=== PATIENT | female | born 1985 | race Asian ===

== ENCOUNTER 2019-05-06 17:41 | Inpatient (IN) ==
[2019-05-06] MEDS ORDERED: OXYTOCIN 30 UNITS/500 ML BAG IV PRN (17:47)
[2019-05-06] MEDS ORDERED: LACTATED RINGER'S 1,000 ML IV PRN (18:00)
--- NOTE | 2019-05-06 18:07 | History & Physical Report ---
Date of Service May 06, 2019 Assessment & Plan (1) : Admit to L&D, EFM/toco. Labs, IV fluids. Patient desires epidural. Anticipate . History of Present Illness Chief Complaint: labor Primary Care Provider: [facility] PCP 34yo @ 40 3/7 presents with worsening contractions. Now every few minutes. No gush of fluid or vaginal bleeding. + movement. uncomplicated. Allergies Allergy/AdvReac Type Severity Reaction Status Date / Time No Known Drug Allergies Allergy Verified 05/03/19 16:05 Home Medications Home Medications Medication Instructions Recorded Confirmed Type 1 tab PO DAILY 03/29/19 05/03/19 History vitamin,calcium,ljxjowkh-gfyj-yvonc acid tablet calcium phosphate-vitamin D2 PO 04/05/19 05/03/19 History ferrous sulfate PO 04/05/19 05/03/19 History Patient History Family History Grandmother (Maternal) Colorectal cancer Grandfather (Maternal) Lung cancer Social History Preferred Language: Kiswahili Visual Impairment: No Limitations Hearing Ability: Normal Smoking Status: Never smoker Review of Systems All systems reviewed & are unremarkable except as noted in HPI & below Physical Exam Physical Exam: Cervix 6/100/-1 per RN. Membranes intact. Constitutional: WD/WN, vitals as above Respiratory: normal respiratory effort, lungs clear to auscultation no respiratory distress Cardiovascular: Rate/Rhythm: regular rate and regular rhythm Gastrointestinal (Abdomen): Inspection/Auscultation: abdomen normal to inspection Percussion/Palpation: abdomen soft; abdomen nontender Gravid. No s/s chorio or abruption. Skin: no rashes, warm and dry Psychiatric: A+Ox3, euthymic affect Results & Data Vital Signs (Past 12 Hours) Vital Signs Pulse BP 05/06/19 18:01 88 124/72 Monitoring External Monitor FHT Cat 1 Tocodynamometer Q 2-3 min
[2019-05-06 18:09] LABS: Hematocrit (blood only) 39.1 % (37-47); Hemoglobin 13.8 g/dL (12.0-16.0); Mean Corpuscular Hemoglobin 33.3 pg (25-34); Mean Corpuscular Volume 94.2 fL (80-100); Mean Platelet Volume 10.2 fL (7.4-10.4); Platelet Count 183 K/uL (130-400); RDW Coefficient of Variation 13.4 % (11.5-14.5); RDW Standard Deviation 46.3 fL (36.4-46.3); Red Blood Count 4.15 M/uL (4.2-5.4); White Blood Count 11.98 K/uL (4.8-10.8)
[2019-05-06 18:15] LABS: Mean Corpuscular Hgb Conc 35.3 g/dL (32-36)
[2019-05-06] MEDS ORDERED: fentaNYL citrate 100 MCG/2 ML VIAL ONE (18:48)
[2019-05-06] MEDS ORDERED: ePHEDrine sulfate 50 MG/ML AMP ONE (18:49)
[2019-05-06] MEDS ORDERED: BUPIVACAINE 0.25% 30 ML VIAL ONE (18:49)
[2019-05-06] MEDS ORDERED: fentaNYL 2MCG/ML ROPIV 1.25MG/ML 100 ML BAG EPI ONE (18:49)
--- NOTE | 2019-05-06 19:18 | Anesthesiology Consultation ---
Date of Service May 06, 2019 Assessment & Plan Chart Review Chart Review: Acceptable Risk for Labor Epidural Consults Requested none History Height/Weight Height: 5 ft 3 in Weight: 73.482 kg Allergies Allergy/AdvReac Type Severity Reaction Status Date / Time No Known Drug Allergies Allergy Unknown Verified 05/06/19 18:32 Medications Home Medications Medication Instructions Recorded Confirmed Last Taken 1 tab PO DAILY 03/29/19 05/06/19 Unknown vitamin,calcium,jrqdcgwr-ztyb-weahe acid tablet Active Medications Generic Name Dose Route Start Last Admin Trade Name Freq PRN Reason Stop Dose Admin Lactated Ringer's 1,000 mls @ 125 mls/hr 05/06/19 18:00 05/06/19 18:55 Lr IV 05/08/19 17:59 125 mls/hr .Q8H PRN Infusion L&D Protocol Protocol Past Medical History Medical History History of varicella Past Family History Family History Grandmother (Maternal) Colorectal cancer Grandfather (Maternal) Lung cancer Past Surgical History Surgical History S/P anterior cruciate ligament surgery S/P appendectomy S/P wisdom tooth extraction Social History Smoking Status: Never smoker Hx Alcohol Use: No Hx Substance Use: No substance use type: does not use Physical Exam Vital Signs Last Vital Signs Temp 36.8 C 05/06/19 17:52 Pulse 93 H 05/06/19 19:17 Resp 24 05/06/19 17:52 BP 114/72 05/06/19 19:17 Pulse Ox 99 05/06/19 19:12 Testing Laboratory Results 05/06/19 17:59
[2019-05-06] MEDS ORDERED: NALBUPHINE HCL INJ 10 MG/ML AMP IV PRN (19:20)
[2019-05-06] MEDS ORDERED: NALOXONE HCL 0.4 MG/1 ML VIAL/CARP IV PRN (19:20)
[2019-05-06] MEDS ORDERED: ePHEDrine sulfate 50 MG/ML AMP IV PRN (19:20)
[2019-05-06] MEDS ORDERED: NALOXONE HCL 1 MG in SODIUM CHLORIDE 0.9% 1000ML 1,000 ML IV PRN (19:20)
[2019-05-06] MEDS ORDERED: fentaNYL 2MCG/ML ROPIV 1.25MG/ML 100 ML BAG EPI PRN (19:20)
[2019-05-06] MEDS ORDERED: DiphenhydrAMINE HCL 50 MG/ML VIAL IV PRN (19:20)
--- NOTE | 2019-05-06 19:38 | Labor Progress Brief Note ---
Date of Service May 06, 2019 Subjective Reason For Note: Routine Evaluation Comfortable after epidural. FHT with decels just after epidural placement, rec'd ephedrine and this improved. SVE 7/100/0. AROM performed for scant fluid. Appears to be blood-tinged mucus. [place] Q 2-4 min. Continue labor, anticipate . Results & Data Vital Signs (Past 12 Hours) Vital Signs Temp Pulse Resp BP Pulse Ox 05/06/19 19:33 96 H 126/72 05/06/19 19:32 86 100 05/06/19 19:31 85 130/67 05/06/19 19:29 78 125/58 L 05/06/19 19:28 76 143/73 H 05/06/19 19:27 77 100 05/06/19 19:25 80 104/63 05/06/19 19:23 83 97/59 L 05/06/19 19:22 93 H 100 05/06/19 19:21 89 99/59 L 05/06/19 19:20 81 109/63 05/06/19 19:18 90 109/72 05/06/19 19:17 97 H 114/72 99 05/06/19 19:15 111/71 05/06/19 19:13 95 H 106/65 05/06/19 19:12 95 H 99 05/06/19 19:11 93 H 112/69 05/06/19 19:09 100 H 126/71 05/06/19 19:07 94 H 122/86 98 05/06/19 18:01 88 124/72 05/06/19 17:52 36.8 C 24
--- NOTE | 2019-05-07 00:10 | Delivery Summary ---
Vaginal Delivery Summary Date of Service May 07, 2019 Vaginal Delivery Summary Vaginal Delivery Summary: Pre-delivery diagnoses: 34yo @ 40 3/7, spontaneous labor Post-delivery diagnoses: same, 2nd degree perineal laceration, left vaginal sulcal tear Procedure: spontaneous vaginal delivery, repair of 2nd degree perineal laceration, repair of left vaginal sulcal tear Surgeon: Melyssa Alvarez DO Complications: none Findings: Viable female . Apgars: 8/9 . Weight pending, please see nursery records. Estimated blood loss: 400ml Description of delivery: The patient progressed to complete with epidural anesthesia. She then began to push. She spontaneously vaginally delivered a viable from the cephalic presentation. The head delivered in DANIEL position. The anterior shoulder delivered, followed by the posterior shoulder, followed by the body. Nuchal cord around neck, easily reduced. The cord was additionally wrapped around the baby's leg. Terminal meconium upon delivery of baby. Amniotic fluid until that time was clear. The baby was placed on mother's abdomen and a spontaneous cry was heard. The cord was doubly clamped and cut. A segment was retained for cord gases. Cord blood was obtained. The placenta was delivered spontaneously intact with a 3-vessel cord. The uterus and vagina were swept of clots and debris. IV pitocin was given. The uterus became firm. The cervix, vagina, and perineum were inspected. A 2nd degree perineal laceration and a left vaginal sulcal tear were noted. After infiltration with 1% lidocaine for anesthetic, these were repaired with running locked stitches of 3-0 Vicryl. Rectal exam revealed no lacerations or sutures in rectum. Excellent hemostasis was observed. The mother and baby are recovering in stable and good condition in the room. Sponge and instrument counts were correct x 2. Melyssa Alvarez DO [facility] [place]
[2019-05-07] MEDS ORDERED: SUPERCREAM 0.870% 15 GM JAR EXT PRN (00:29)
[2019-05-07] MEDS ORDERED: BISACODYL 10 MG SUPP PR PRN (00:29)
[2019-05-07] MEDS ORDERED: HYDROCORTISONE ACETATE 25 MG SUPP PR PRN (00:29)
[2019-05-07] MEDS ORDERED: ACETAMINOPHEN 325 MG TAB PO PRN (00:29)
[2019-05-07] MEDS ORDERED: OXYCODONE/ACETAMINOPHEN 5mg/325mg TAB PO PRN (00:29)
[2019-05-07] MEDS ORDERED: OXYTOCIN 30 UNITS/500 ML BAG IV PRN (00:29)
[2019-05-07] MEDS ORDERED: BENZOCAINE 20% AER SPR 82.5 GM CAN EXT PRN (00:29)
[2019-05-07] MEDS ORDERED: DIPHTHERIA/TETANUS/PERTUSSIS 0.5 ML SYR/VIAL IM ONE (00:29)
[2019-05-07] MEDS: IBUPROFEN 600 MG TAB PO PRN ×6 (01:19→23:18)
[2019-05-07 06:13] LABS: Hemoglobin 11.5 g/dL (12.0-16.0)
[2019-05-07] MEDS: PRENATAL VITAMIN 1 TAB PO SCH (07:46)
[2019-05-07] MEDS: DOCUSATE SODIUM 100 MG CAP PO SCH ×2 (07:46→20:13)
--- NOTE | 2019-05-07 07:49 | Anesthesia Procedure Note ---
Date of Service May 07, 2019 Anesthesia Post Epidural Note Vital Signs Vital Signs: Temp Pulse Resp BP Pulse Ox 36.4 C L 85 17 111/70 97 05/07/19 05:30 05/07/19 05:30 05/07/19 05:30 05/07/19 05:30 05/07/19 05:30 Pain Intensity Abdomen: Pain Intensity: 2 Notes Mental Status: alert / awake / arousable Nausea / Vomiting: adequately controlled Pain: adequately controlled Airway Patency, RR, SpO2: stable & adequate BP & HR: stable & adequate Hydration State: stable & adequate Neuraxial Anesthesia: was administered and sensory block is resolving Anesthetic Complications: no major complications apparent and Pt Satisfied with anesthetic care Epidural: Removed without complications and With tip intact
--- NOTE | 2019-05-07 08:48 | Obstetrical Progress Note ---
Date of Service May 07, 2019 Assessment & Plan (1) : PPD#1 doing well. Plans for DC home tomorrow. Routine care. Subjective Ambulation: ambulating normally Voiding: no voiding problems Diet Tolerance:: regular diet Lochia:: Moderate Review of Systems All systems reviewed & are unremarkable except as noted in HPI & below Physical Exam Constitutional WD/WN, vitals as above no acute distress Respiratory normal respiratory effort Cardiovascular Rate/Rhythm: regular rate and regular rhythm Gastrointestinal (Abdomen) Inspection/Auscultation: abdomen normal to inspection; abdomen not distended Percussion/Palpation: abdomen soft Genitourinary OB Exam Abdomen: + fundal height Fundus: + firm; not tender Results & Data Vital Signs (Past 12 Hours) Vital Signs Temp Pulse Pulse Resp BP BP Pulse Ox 05/07/19 05:30 36.4 C L 85 17 111/70 97 05/07/19 01:50 EST 36.8 C 109 H 16 111/72 97 05/07/19 01:48 EST 111 H 106/56 L 05/07/19 01:34 EST 115 H 106/59 L 05/07/19 01:19 EST 118 H 115/69 05/07/19 01:04 EST 18 05/07/19 01:03 EST 110 H 109/55 L 05/07/19 01:35 EDT 16 05/07/19 01:05 EDT 37.0 C 18 05/07/19 00:49 123 H 16 117/71 05/07/19 00:34 115 H 18 114/63 05/07/19 00:19 117 H 18 128/68 05/07/19 00:04 37.0 C 110 H 18 122/74 05/06/19 23:37 130 H 95 05/06/19 23:35 142 H 130/100 92 05/06/19 23:32 141 H 88 L 05/06/19 23:28 151 H 92 05/06/19 23:27 144 H 88 L 05/06/19 23:19 137 H 88 L 05/06/19 23:14 132 H 96 05/06/19 23:10 137 H 92 05/06/19 23:08 137 H 97 05/06/19 23:04 134 H 90 05/06/19 23:03 132 H 98 05/06/19 22:58 120 H 97 05/06/19 22:53 130 H 94 05/06/19 22:52 123 H 84 L 05/06/19 22:48 125 H 99 05/06/19 22:43 123 H 90 05/06/19 22:41 123 H 92 05/06/19 22:38 122 H 84 L 05/06/19 22:35 113 H 137/82 87 L 05/06/19 22:33 109 H 93 05/06/19 22:30 113 H 88 L 05/06/19 22:28 126 H 100 05/06/19 22:27 36.8 C 20 05/06/19 22:23 109 H 90 05/06/19 22:18 118 H 76 L 05/06/19 22:13 118 H 100 05/06/19 22:12 115 H 90 05/06/19 22:08 126 H 99 05/06/19 22:05 109 H 91 05/06/19 22:03 112 H 100 05/06/19 22:00 22 05/06/19 21:58 112 H 100 05/06/19 21:53 120 H 100 05/06/19 21:52 117 H 124/79 05/06/19 21:50 109 H 83 L 05/06/19 21:48 105 H 100
[2019-05-08] MEDS: IBUPROFEN 600 MG TAB PO PRN ×4 (04:28→17:37)
--- NOTE | 2019-05-08 06:38 | Obstetrical Progress Note ---
Date of Service <Joaquim Meade DO - Last Filed: 05/08/19 06:38> May 08, 2019 Assessment & Plan <DO Kaya Mejia Last Filed: 05/08/19 06:38> (1) : -PPD#2 -Vitals reviewed, WNL (Tmax 37.0) - GBS -, Blood Type O+ - Clinically stable. - Feels well today. Eating well, voiding well, ambulating well. - Pain well controlled. - Routine post- care - After discharge will have [address] Alvarez. Day #:: 2 Subjective <Joaquim Meade DO Last Filed: 05/08/19 06:38> Ambulation: ambulating normally Voiding: no voiding problems Passing Gas:: Yes Diet Tolerance:: regular diet Lochia:: Moderate Feeding Type:: breast feeding Current Pain Level(1-10): 2 (improves with analgesics) Patient is a 34 PPD#2. Patient states that she is feeling well today and that her pain is well controlled. She has no other complaints at this time. Patient was just finishing up baby. Constitutional: no fever and no chills Respiratory: no cough, no dyspnea and no wheezing Cardiovascular: no chest pain, no dyspnea, no palpitations, no edema and no calf pain Breast: + breast pain (nipple pain ) Gastrointestinal: no abdominal pain, no nausea and no vomiting Genitourinary (female): no dysuria and no difficulty urinating Neurologic: no headache(s) Physical Exam <DO Kaya Mejia Last Filed: 05/08/19 06:38> Constitutional WD/WN, vitals as above Respiratory normal respiratory effort, lungs clear to auscultation Cardiovascular Rate/Rhythm: regular rate and regular rhythm Heart Sounds: normal S1 and normal S2; no click, no gallop, no murmur and no cardiac rub Extremities: no calf tenderness and no edema Gastrointestinal (Abdomen) Inspection/Auscultation: abdomen normal to inspection and normal bowel sounds Percussion/Palpation: abdomen soft; abdomen nontender Genitourinary OB Exam Abdomen: + fundal height Fundus: + firm and + relation to umbilicus (2cm below); not tender and not boggy Results & Data <Joaquim JacobonDO Kirkpatrick Last Filed: 05/08/19 06:38> Vital Signs (Past 12 Hours) Vital Signs Temp Pulse Pulse Resp BP BP Pulse Ox 05/08/19 05:25 36.5 C 89 18 97/62 L 05/07/19 23:05 36.5 C 89 18 107/65 05/07/19 19:57 36.6 C 100 H 18 104/57 L 96 Medications Administered Current Inpatient Medications Acetaminophen (Tylenol) 650 mg PO Q6H PRN PRN Reason: Pain/AKINS/Fever Stop: 06/06/19 00:28 Last Admin: 05/07/19 03:02 Dose: 650 mg Documented by: Benzocaine (Dermoplast Pain Relieving [place]) 1 appln EXT PRN PRN PRN Reason: Perineal Discomfort Stop: 06/06/19 00:28 Last Admin: 05/07/19 01:48 EST Dose: 82.5 appln Documented by: Bisacodyl (Dulcolax) 5 mg PO 1999 [facility] Stop: 05/08/19 20:01 Bisacodyl (Dulcolax) 10 mg [place] DAILY PRN PRN Reason: No BM on 2nd post- day Stop: 06/06/19 00:28 Cocaine HCl (Supercream 0.870%) 1 gm EXT BID PRN PRN Reason: Hemorrhoidal Inflammation Stop: 05/21/19 00:28 Docusate Sodium (Colace) 100 mg PO DAILY@08,21 [facility] Stop: 06/06/19 07:59 Last Admin: 05/07/19 20:13 Dose: 100 mg Documented by: Hydrocortisone (Anusol Hc) 25 mg [place] BID PRN PRN Reason: Hemorrhoidal Inflammation Stop: 06/06/19 00:28 Oxytocin (Pitocin) 30 units in 500 mls @ 333.333 mls/hr IV .Q1H30M PRN; Protocol PRN Reason: Bleeding Control Stop: 06/06/19 00:28 Last Titration: 05/07/19 01:02 EDT Dose: Infused Documented by: Ibuprofen (Motrin) 600 mg PO Q4H PRN PRN Reason: Pain/AKINS/Cramping/Fever Stop: 06/06/19 00:28 Last Admin: 05/08/19 04:28 Dose: 600 mg Documented by: Oxycodone/Acetaminophen (Percocet 5mg/325mg) 1 tab PO Q4H PRN PRN Reason: Pain not relieved by... Stop: 05/21/19 00:28 Prenat Multivit/Music Grapher/Iron/Folic Ac ( Vitamin) 1 tab PO DAILY@08 VICENTE Stop: 06/06/19 07:59 Last Admin: 05/07/19 07:46 Dose: 1 tab Documented by: <Melyssa Alvarez DO - Last Filed: 05/08/19 07:32> Co-Signing Physician Notes Resident Physician Supervision Note: I was present with Dr. Meade during the history and exam. I discussed the case with the resident and agree with the findings and plan as documented in the note. Any exceptions or clarifications are listed here: PPD#2 doing well. Discharge today. Instructions reviewed. Followup 6wPP. Documented By: Melyssa Alvarez DO Resident Activity Tracking <Joaquim Meade DO - Last Filed: 05/08/19 06:38> Resident Involvement: Resident Care Provided Care Provided: OB Delivery
[2019-05-08] MEDS: PRENATAL VITAMIN 1 TAB PO SCH (08:14)
[2019-05-08] MEDS: DOCUSATE SODIUM 100 MG CAP PO SCH ×2 (08:14→20:19)
[2019-05-08] MEDS ORDERED: BISACODYL 5 MG TABEC PO SCH (20:00)
== END 2019-05-08 22:00 | disposition home or self-care (01) | DRG 807 ==
LOC: OPB 17:41 → 4S1 17:41 → 4S2 05-07 01:10